=== PATIENT | male | born 1985 | race Caucasian/White ===

== ENCOUNTER 2019-07-15 16:34 | Emergency (ER) | payer SELFPAY ==
[~2019-07-15] VITALS: Ht 170.2 cm; Wt 90.0 kg
[2019-07-15] MEDS: ACETAMINOPHEN 500MG TABLET PO ONE ×2 (17:31→17:51)
[2019-07-15] MEDS ORDERED: ACETAMINOPHEN WITH CODEINE 300/30MG TABLET PO ONE (19:00)
[2019-07-15 20:08] VITALS: BP 122/81
== END 2019-07-15 20:09 | disposition home or self-care (01) ==
LOC: ER 16:34
DX: S00.90XA Unspecified superficial injury of unspecified part of head, initial encounter (principal); S09.93XA Unspecified injury of face, initial encounter; M25.521 Pain in right elbow; Y04.0XXA Assault by unarmed brawl or fight, initial encounter; Y93.89 Activity, other specified; Y92.89 Other specified places as the place of occurrence of the external cause; Y99.8 Other external cause status
CPT/HCPCS: 70486; 73070; 99285